=== PATIENT | female | born 1960 | race African-American/Black ===

== ENCOUNTER 2017-09-24 12:15 | Day surgery (SDC) | payer OTHER ==
[2017-09-23 14:29] VITALS: BMI 47.2
[2017-09-24] MEDS ORDERED: PROPOFOL 20 ML ONE ×2 (12:46)
[2017-09-24] MEDS ORDERED: MIDAZOLAM HCL 2 MG/2 ML SINGLE DOSE VIAL ONE ×2 (12:46→13:53)
[2017-09-24] MEDS ORDERED: BUPIVACAINE HCL/PF 0.5% (5MG/ML) 10 ML VIAL ONE (13:29)
[2017-09-24] MEDS ORDERED: IBUPROFEN 800 MG/8 ML IJ IVPB PRN (13:34)
[2017-09-24] MEDS ORDERED: IBUPROFEN 600 MG TABLET (FP) PO PRN (13:34)
[2017-09-24] MEDS ORDERED: oxyCODONE HCL 5 MG TABLET PO PRN ×2 (13:34→14:40)
[2017-09-24] MEDS ORDERED: BUPIVACAINE HCL/PF 0.75% 10 ML VIAL ONE (13:34)
--- NOTE | 2017-09-24 13:34 | HP ---
History & Physical Update - History History: No Change - Physical Physical: No Change - Assessment Assessment: No Change - Plan Plan: No Change (No change since 09/11/17)
--- NOTE | 2017-09-24 13:38 | OP ---
Operative Note - Note: Operative Date: 09/24/17 Pre-Operative Diagnosis: 57yo P0 with Persistent Postmenopausal bleeding, morbid obesity, family history of breast CA Operation: Hysteroscopy, Polypectomy, D&C Findings: Large, ~ 5-6cm submucosal myoma, occupying most of the uterine cavity Post-Operative Diagnosis: Same as Pre-op (and Submucosal myoma) Surgeon: Irma Mills Anesthesiologist/DIE REPAIRER FORGING: Moises Rob Anesthesia: Spinal, MAC Estimated Blood Loss (mls): 25 Drains & Tubes with Location: Fluid deficit 180cc Drains, Volume Out (mls): 100 Blood Volume Replaced (mls): 25 Fluid Volume Replaced (mls): 100 Operative Report Dictated: Yes
[2017-09-24] MEDS ORDERED: metroNIDAZOLE 500 MG PREMIXED 1,000 MG/200 ML MG IVPB ONE (13:59)
[2017-09-24] MEDS ORDERED: ePHEDrine SULFATE 50 MG/1 ML AMPULE ONE (14:32)
[2017-09-24] MEDS ORDERED: ONDANSETRON 4 MG/2 ML VIAL IVPUSH PRN ×2 (14:40→14:41)
[2017-09-24] MEDS ORDERED: ELECTROLYTE-148 SOLN 1,000 ML IV SCH (14:45)
[2017-09-24] MEDS ORDERED: LACTATED RINGERS SOLUTION 1,000 ML IV SCH (14:45)
[2017-09-24] MEDS ORDERED: IBUPROFEN 800 MG/8 ML IJ IVPB ONE (15:36)
[2017-09-24 16:58] VITALS: PULSE 79; TEMP 97.6
[2017-09-24 17:07] VITALS: BP 122/75
--- NOTE | 2017-09-26 10:37 | PATH ---
Surgical Pathology Report Patient Name: JALEEL VERDUGO [facility]. Rec. #: [id number] /Age/Gender: 1960 (Age: 57) / F Account: [id number] Location: [facility] SUR[facility]ICAL Taken: 09/24/2017 Received: 09/25/2017 Reported: 09/26/2017 Physicians: Irma Mills M.D. Specimen(s) Received ENDOMETRIAL CURETTINGS Clinical History Postmenopausal bleeding Postoperative diagnosis: Submucous fibroids Final Diagnosis ENDOMETRIAL CURETTINGS, DILATION AND CURETTAGE: FRAGMENTS OF ENDOMETRIAL POLYP, SUPERFICIAL MYOMETRIUM, AND BENIGN CERVICAL TISSUE. Electronically Signed Julieta Vasquez M.D. Gross Description Received in formalin labeled "endometrial curettage," is a 4.0 x 2.8 x 0.4 cm aggregate of fierro-brown soft tissue fragments admixed with blood clot. The formalin is filtered and the specimen is entirely submitted in 3 cassettes. /09/25/2017 saudi09/25/2017
== END 2017-09-24 19:00 | disposition home or self-care (01) ==
LOC: JASU-SURG 12:15
PROVIDERS: ATTEND Obstetrics & Gynecology
PROC: 0UJD8ZZ Inspection of Uterus and Cervix, Via Natural or Artificial Opening Endoscopic (ICD-10-PCS; 2017-09-24)
PROC: 0UB98ZZ Excision of Uterus, Via Natural or Artificial Opening Endoscopic (ICD-10-PCS; principal; 2017-09-24 13:00)
PROC: 0UDB7ZX Extraction of Endometrium, Via Natural or Artificial Opening, Diagnostic (ICD-10-PCS; 2017-09-24 13:00)
DX: N95.0 Postmenopausal bleeding (principal); D25.0 Submucous leiomyoma of uterus; E66.01 Morbid (severe) obesity due to excess calories; Z80.3 Family history of malignant neoplasm of breast
CPT/HCPCS: 88305-TC; 94760